=== PATIENT | male | born 1975 | race Caucasian/White ===

== ENCOUNTER 2020-10-21 21:46 | Emergency (ER) | payer BC ==
[~2020-10-21] VITALS: Ht 182.9 cm; Wt 100.0 kg
[2020-10-21] MEDS ORDERED: HYDROcodone/APAP 5/325 TABLET PO ONE (22:00)
[2020-10-21] MEDS ORDERED: PLEASE ENTER ALLERGIES MC SCH (22:00)
[2020-10-21] MEDS ORDERED: HYDROcodone/APAP 5/325 TABLET ONE (22:09)
--- NOTE | 2020-10-21 22:10 | NUR ---
US IN WITH PT
[2020-10-21 22:31] LABS: MICROSCOPIC INDICATED
[2020-10-21] MEDS ORDERED: CEFTRIAXONE 250 MG ONE (23:41)
[2020-10-21] MEDS ORDERED: DOXYCYCLINE 100MG TABLET ONE (23:41)
[2020-10-21 23:46] VITALS: BP 148/90
[2020-10-22] MEDS ORDERED: DOXYCYCLINE 100MG TABLET PO ONE
[2020-10-22] MEDS ORDERED: CEFTRIAXONE 250 MG IM ONE
== END 2020-10-22 00:13 | disposition home or self-care (01) ==
LOC: ED 23:05
DX: N45.1 Epididymitis (principal); N45.2 Orchitis; F17.210 Nicotine dependence, cigarettes, uncomplicated
CPT/HCPCS: 76870; 81001; 87077; 87086; 87186; 87491; 87591; 96372; 99284; 99406; J0696